=== PATIENT | male | born 1995 | race Caucasian/White ===

== ENCOUNTER 2018-03-22 03:16 | Emergency (ER) | payer SELFPAY ==
[2018-03-22 03:18] VITALS: BP 136/104
[2018-03-22] MEDS ORDERED: DEXT10TA9 PO (03:22)
[2018-03-22] MEDS ORDERED: AMPH20CA15 PO (03:22)
--- NOTE | 2018-03-22 03:28 | ER Report ---
History and Physical Time Seen By MD: 03:22 Hx. of Stated Complaint: SENIOR LIVING CLEARANCE, ETOH INTOXICATION HPI/ROS CHIEF COMPLAINT: Shelter clearance HISTORY OF PRESENT ILLNESS: 22-year-old male brought in by police for alf clearance. Patient voices no complaints. Patient denies significant past medical history. He admits to heavy alcohol ingestion. He has slurred speech consistent with alcohol intoxication. REVIEW OF SYSTEMS: Respiratory: No cough, no dyspnea. Cardiovascular: No chest pain, no palpitations. Gastrointestinal: No vomiting, no abdominal pain. Musculoskeletal: No back pain. Allergies: Coded Allergies: No Known Drug Allergies (Unverified , 03/22/18) Home Meds Reported Medications Amphet Asp/Amphet/D-Amphet (ADDERALL 10 MG TABLET) 10 Mg Tablet, 10 MG PO PRN 03/22/18 Amphet Asp/Amphet/D-Amphet (ADDERALL XR 20 MG CAPSULE) 20 Mg Cap.er.24h, 20 MG PO QAM 03/22/18 Reviewed Nurses Notes: Yes Old Medical Records Reviewed: Yes Hx Substance Use Disorder: No Hx Alcohol Use: No Constitutional Vital Sign - Last 24 Hours 03/22/18 03:18 Temp 97.5 Pulse 110 Resp 16 B/P (MAP) 136/104 Pulse Ox 95 O2 Delivery Room Air Physical Exam General Appearance: The patient is alert, has no immediate need for airway protection and no current signs of toxicity. Palpation of the head and neck reveal no tenderness or trauma HEENT: Pupils equal and round no injection. TMs normal, oropharynx without dental trauma Respiratory: Chest is non tender, lungs are clear to auscultation. No chest wall tenderness, no lora or bruising Cardiac: regular rate and rhythm Gastrointestinal: Abdomen is soft and non tender, no masses, bowel sounds normal. Musculoskeletal: Neck: Neck is supple and non tender. Extremities have full range of motion and are non tender. Skin: No rashes or lesions. DIFFERENTIAL DIAGNOSIS: After history and physical exam differential diagnosis was considered for alf clearance, alcohol intoxication, polysubstance abuse Medical Decision Making ED Course/Re-evaluation ED Course Patient was minute to an examination room. H&P was done. The differential diagnoses was considered. On clinical examination. Patient has no findings. His vital signs are stable. He voices no complaints. He is medical cleared for alf admission. Decision to Disposition Date: Mar 22, 2018 Decision to Disposition Time: 03:28 Depart Departure Latest Vital Signs Vital Signs Date Time Temp Pulse Resp B/P (MAP) Pulse Ox O2 Delivery O2 Flow Rate FiO2 03/22/18 03:18 97.5 110 16 136/104 95 Room Air Impression: Primary Impression: Medical clearance for incarceration Additional Impression: Alcohol intoxication Condition: Improved Disposition: [facility] TO SENIOR LIVING/CORRECTIONAL F Patient Instructions: Alcohol Intoxication (ED) Additional Instructions: Medical cleared for alf admission Problem Qualifiers Additional Impression: Alcohol intoxication Complication of substance-induced condition: uncomplicated Qualified Codes: F10.920 - Alcohol use, unspecified with intoxication, uncomplicated ADITYA OCHOA DO Mar 22, 2018 03:28
== END 2018-03-22 03:35 ==
LOC: ER 03:33
DX: F10.920 Alcohol use, unspecified with intoxication, uncomplicated (principal)
CPT/HCPCS: 99281

== ENCOUNTER → 2018-06-12 | Outpatient (CLI) | payer BC ==
[~2018-06-12] MED LIST: AMPH20CA15 PO; DEXT10TA9 PO
[2018-06-12 15:44] LABS: PLATELET COUNT, AUTOMATED 296 K/uL (150-450)
--- NOTE | 2018-06-12 15:48 | RADIOLOGY IMAGING REPORT ---
FACILITY: PATIENT NAME: Matt Darby : 1995 MR: [id number] V: [id number] EXAM DATE: ORDERING PHYSICIAN: LEE ALTMAN TECHNOLOGIST: Location: [facility] Patient: Matt Darby : 1995 Visit/Account:[id number] Date of Sevice: 06/12/2018 Exam type: CHEST PA LAT History: Chest pain, dyspnea x2 days, history of asthma Comparison: None. Findings: The lungs are free of acute effusions, infiltrates or edema. There is no evidence of a pneumothorax or pneumomediastinum. The cardiac swelling is normal in size. The trachea is in midline. IMPRESSION: 1. No acute cardiopulmonary process is seen Report Dictated By: Janeen Marcos MD at 06/12/2018 3:42 PM Report E-Signed By: Janeen Marcos MD at 06/12/2018 3:42 PM WSN:[email or web address]
== END ==
LOC: LAB 15:06
PROVIDERS: ATTEND Nurse Practitioner Family
DX: R07.9 Chest pain, unspecified (principal); R06.00 Dyspnea, unspecified
CPT/HCPCS: 36415; 71046; 82040; 82247; 82310; 82374; 82435; 82565; 82947; 84075; 84132; 84155; 84295; 84450; 84460; 84520; 85025; 85379